=== PATIENT | male | born 1955 ===

== ENCOUNTER → 2018-09-03 | Outpatient (CLI) | payer OTHER ==
[2018-09-03 11:22] LABS: OSMOLALITY,URINE 188 mOsm/kg (300-900)
[2018-09-03 13:02] LABS: URINE SODIUM < 5 mmol/L (30-90)
== END ==
LOC: LAB 10:17
PROVIDERS: ATTEND Physician Assistant
DX: E87.1 Hypo-osmolality and hyponatremia (principal)
CPT/HCPCS: 83935; 84300